=== PATIENT | male | born 1960 | race Caucasian/White ===

== ENCOUNTER 2016-09-22 03:35 | Emergency (ER) | payer OTHER ==
--- NOTE | 2016-09-22 03:45 | ED Physician Documentation ---
History of Present Illness - Stated complaint Stated Complaint: WEAKNESS - History obtained from History obtained from: Patient - History of Present Illness Timing: Enter time (23:30), Today Pain level now: 3 Radiates to: no radiation Improved by: no ameliorating factors Worsened by: no exacerbating factors - Additonal information Additional information: patient says he was in bed trying to go to sleep at approximately 11:30 PM tonight when he felt a vague discomfort in his upper abdomen. He says it was not pain, just "uncomfortable". Mild nausea, denies dyspnea. He felt he had to have BM and thus went to the bathroom, says he "became worse" and thus lied down on the floor. I asked what became worse, he says the "uncomfortable" sensation. Denies lightheadedness. Patient is visiting from [place]. He stopped taking Plavix about a week ago, although he says his doctor told him he could stop this medication. H/O LA approximately 5 years ago with 2 stents to LAD. Review of Systems Constitutional: reports: Reviewed and negative Eyes: reports: Reviewed and negative Ears: reports: Reviewed and negative Nose: reports: Reviewed and negative Throat: reports: Reviewed and negative Cardiac: reports: Reviewed and negative GI: reports: Abdominal Pain, Nausea. denies: Vomiting : reports: Reviewed and negative Skin: reports: Reviewed and negative Musculoskeletal: reports: Reviewed and negative Neurologic: reports: Reviewed and negative PD PAST MEDICAL HISTORY - Past Medical History Past Medical History: Yes Cardiovascular: Hypertension, High cholesterol, LA Psych: ADD/ADHD - Past Surgical History Past Surgical History: Yes Cardiovascular: Coronary stent - Present Medications Home Medications: Ambulatory Orders Medication Instructions Recorded Confirmed Amphetamine Sulfate [Evekeo] 20 mg PO BID 09/22/16 09/22/16 Aspirin 325 mg PO DAILY 09/22/16 09/22/16 Atorvastatin Calcium 80 mg PO DAILY PM 09/22/16 09/22/16 Diclofenac Sodium [Voltaren] 1 TOP Q6HR 09/22/16 Fenofibrate Nanocrystallized 145 mg PO DAILY 09/22/16 09/22/16 [Fenofibrate] Lisinopril 5 mg PO DAILY 09/22/16 09/22/16 Metoprolol Succinate 25 mg PO DAILY 09/22/16 09/22/16 - Allergies Allergies/Adverse Reactions: Allergies Allergy/AdvReac Type Severity Reaction Status Date / Time No Known Drug Allergies Allergy Verified 09/22/16 03:47 - Living Situation Living Arrangement: reports: At home - Social History Does the pt have substance abuse?: No PD ED PE NORMAL - Vitals Vital signs reviewed: Yes - General General: Alert and oriented X 3, No acute distress, Well developed/nourished - HEENT HEENT: Moist mucous membranes - Neck Neck: Supple, no meningeal sign - Cardiac Cardiac: RRR, No murmur, No gallop, No rub - Respiratory Respiratory: No respiratory distress, Clear bilaterally - Abdomen Abdomen: Soft, Non tender, Non distended - Derm Derm: Normal color, Warm and dry - Extremities Extremities: No edema - Neuro Neuro: Alert and oriented X 3, fur examiner 2-12 intact, No motor deficit, No sensory deficit Results - Vitals Vitals: Vital Signs - 24 hr 09/22/16 09/22/16 08:17 10:00 Temperature 36.3 C L Heart Rate 50 L 62 Respiratory 16 16 Rate Blood Pressure 126/82 H 118/81 H O2 Saturation 99 95 Oxygen O2 Source Room air - EKG (time done) No standard instances Rate: Rate (enter#) (58) Rhythm: NSR [place]: Normal Intervals: Normal NM, RBBB QRS: Normal Ischemia: Normal ST segments, Q waves (V1, V2) - Labs Labs: Laboratory Tests 09/22/16 09/22/16 09/22/16 03:50 03:50 03:50 WBC 15.4 H RBC 5.33 Hgb 15.5 Hct 44.5 MCV 83.5 MCH 29.1 MCHC 34.9 RDW 12.9 Plt Count 249 MPV 7.8 Neut # 12.8 H Lymph # 1.6 [place] # 0.8 Eos # 0.2 Baso # 0.0 Absolute Nucleated RBC 0.01 Nucleated RBCs 0.0 Sodium 137 Potassium 4.3 Chloride 101 Carbon Dioxide 26 Anion Gap 10.0 BUN 22 H Creatinine 1.3 H Estimated GFR (MDRD) 57 L Glucose 181 H Calcium 9.3 Total Bilirubin 0.5 AST 28 ALT 26 Alkaline Phosphatase 55 Troponin I < 0.04 Total Protein 7.0 Albumin 4.6 Globulin 2.4 Albumin/Globulin Ratio 1.9 Lipase 31 Urine Color Urine Clarity Urine pH Ur Specific [place] Urine Protein Urine Glucose (UA) Urine Ketones Urine Occult Blood Urine Nitrite Urine Bilirubin Urine Urobilinogen Ur Leukocyte Esterase Ur Microscopic Review Urine Culture Comments 09/22/16 06:54 WBC RBC Hgb Hct MCV MCH MCHC RDW Plt Count MPV Neut # Lymph # [place] # Eos # Baso # Absolute Nucleated RBC Nucleated RBCs Sodium Potassium Chloride Carbon Dioxide Anion Gap BUN Creatinine Estimated GFR (MDRD) Glucose Calcium Total Bilirubin AST ALT Alkaline Phosphatase Troponin I Total Protein Albumin Globulin Albumin/Globulin Ratio Lipase Urine Color YELLOW Urine Clarity CLEAR Urine pH 8.0 H Ur Specific [place] 1.010 Urine Protein NEGATIVE Urine Glucose (UA) NEGATIVE Urine Ketones NEGATIVE Urine Occult Blood NEGATIVE Urine Nitrite NEGATIVE Urine Bilirubin NEGATIVE Urine Urobilinogen 0.2 (NORMAL) Ur Leukocyte Esterase NEGATIVE Ur Microscopic Review NOT INDICATED Urine Culture Comments NOT INDICATED - Rads (name of study) chest xray Radiology: Prelim report reviewed, See rad report CT abd/pelvis angio Radiology: Prelim report reviewed, See rad report PD MEDICAL DECISION MAKING - ED course Complexity details: reviewed results, re-evaluated patient, considered differential, d/w patient, d/w family ED course: Patient's initial exam was unremarkable and he was in NAD. On reevaluation, he appeared to be in obvious painful distress, although he says he is merely "uncomfortable". He agreed with zofran and morphine, which he says helped significantly (although he continued to appear uncomfortable). CT A/P performed to r/o AAA. This revealed splenic infarct and thrombus, possible embolus, of the splenic artery. Case d/w vascular surgeon at [facility]; he says patient would not need nor benefit from vascular surgical service. I then d/w Dr. Leyva ([facility] hospitalist), who recommends transfer to higher level of care. I then d/w hospitalist at [facility]; she opines that patient does not need, nor would benefit from, transfer to higher level of care. I again d/w Dr. Leyva, who came to ED to evaluated patient. He then arranged for transfer to [facility]. Departure - Departure Disposition: 02 Transfer Acute Care Hosp Clinical Impression: Splenic infarction Condition: Stable Discharge Date/Time: 09/22/16 11:39
[2016-09-22 04:15] LABS: BASOPHILS % (AUTO) 0.3 %; EOSINOPHILS # (AUTO) 0.2 10^3/uL (0.0-0.7); HCT - HEMATOCRIT 44.5 % (42.0-52.0); HGB - HEMOGLOBIN 15.5 g/dL (14.0-18.0); LYMPHOCYTES # (AUTO) 1.6 10^3/uL (1.5-3.5); LYMPHOCYTES % (AUTO) 10.4 %; MEAN CORPUSCULAR HEMOGLOBIN 29.1 pg (27.0-31.0); MEAN CORPUSCULAR HGB CONC 34.9 g/dL (32.0-36.0); MEAN CORPUSCULAR VOLUME 83.5 fL (80.0-94.0); MEAN PLATELET VOLUME 7.8 fL (7.4-11.4); MONOCYTES # (AUTO) 0.8 10^3/uL (0.0-1.0); MONOCYTES % (AUTO) 5.3 %; NEUTROPHILS # (AUTO) 12.8 10^3/uL (1.5-6.6); RED BLOOD COUNT 5.33 10^6/uL (4.70-6.10); RED CELL DISTRIBUTION WIDTH 12.9 % (12.0-15.0); UNCORRECTED WHITE BLOOD COUNT 15.4 x10^3/uL; WHITE BLOOD COUNT 15.4 x10^3/uL (4.8-10.8)
[2016-09-22 04:25] LABS: ALBUMIN/GLOBULIN RATIO 1.9 (1.0-2.2); BILIRUBIN,TOTAL 0.5 mg/dL (0.2-1.0); CALCIUM 9.3 mg/dL (8.5-10.3); CREATININE 1.3 mg/dL (0.6-1.2); POTASSIUM 4.3 mmol/L (3.5-5.0)
[2016-09-22] MEDS ORDERED: ONDANSETRON 4 MG/2 ML VIAL ONE (04:29)
[2016-09-22] MEDS ORDERED: ONDANSETRON 4 MG/2 ML VIAL IVP STA ×2 (04:35→06:42)
--- NOTE | 2016-09-22 05:15 | XRAY Preliminary Report ---
Exam: XR Chest 2 View PA/LAT IMPRESSION: 1. No acute abnormality seen in the chest. [facility] SITE ID: [id number]
--- NOTE | 2016-09-22 05:18 | XRAY Report ---
EXAM: CHEST RADIOGRAPHY EXAM DATE: 09/22/2016 04:50 AM. CLINICAL HISTORY: Chest pain. COMPARISON: None. TECHNIQUE: 2 views. FINDINGS: Lungs/Pleura: No alveolar consolidation or pleural effusion. No pneumothorax. Mediastinum: Heart and mediastinal contours are unremarkable. Other: None. IMPRESSION: 1. No acute abnormality seen in the chest. [facility] Referring Provider Line: [phone] SITE ID: [id number]
[2016-09-22] MEDS ORDERED: MORPHINE 2 MG/ML SYRINGE IVP STA ×3 (05:25→08:49)
[2016-09-22] MEDS ORDERED: MORPHINE 2 MG/ML SYRINGE ONE ×3 (05:26→08:54)
[2016-09-22] MEDS ORDERED: IOPAMIDOL-300 100 ML VIAL IVP ONE (06:06)
--- NOTE | 2016-09-22 06:30 | CT Report ---
EXAM: CT ANGIOGRAM ABDOMEN AND PELVIS WITH CONTRAST EXAM DATE: 09/22/2016 06:11 AM. CLINICAL HISTORY: Left upper quadrant abdominal pain. Tightness in the chest. COMPARISONS: None. TECHNIQUE: Routine helical CT angiogram imaging was performed through the abdomen and pelvis in the a rterial phase. IV contrast: Nonionic. Enteric contrast: No. Reconstructions: Coronal, sagittal, and 3 D MIP reconstructions. In accordance with CT protocol optimization, one or more of the following dose reduction techniques w ere utilized for this exam: automated exposure control, adjustment of mA and/or KV based on patient s ize, or use of iterative reconstructive technique. FINDINGS: Vasculature: No aortic aneurysm or dissection is seen. No significant stenosis is seen in the celiac axis, superior mesenteric artery, bilateral renal arteries, inferior mesenteric artery, or bilateral iliac arteries. Filling defect consistent with thrombus is seen in the distal splenic artery. This is likely embolic. Lung Bases: No alveolar consolidation seen. Some questionable strandy filling defects are seen in the left ventricle which could be clot. This would be a potential source of splenic artery embolus. Cons ider echocardiogram for further evaluation. Abdominal Solid Organs: No focal lesion identified in the liver on this arterial phase examination. G allbladder is unremarkable. Much of the spleen appears to be nonenhancing. This can be seen with charly y phase contrast enhancement but in this case, there likely is a large amount of splenic infarct. Toro creas and adrenals show no focal abnormalities. At least one nonobstructing stone is seen in the left kidney and at least 2 in the right kidney. No obstructive uropathy is seen. Peritoneal Cavity: Umbilical hernia containing fat. No diverticulitis is seen. No small bowel obstruc tion. No free air or free fluid is identified. No lymphadenopathy is seen. Appendix appears normal. Pelvic Organs: Normal. The bladder and visualized pelvic organs are within normal limits. Bones: No significant abnormality. Other: There is a 6 x 5 mm calcification in the left hemipelvis at the level of the sciatic notch, se anu 3 image 184. This is within or immediately adjacent to the distal left ureter. This could be a p hlebolith or a nonobstructing ureteral stone. IMPRESSION: 1. Filling defect in the distal splenic artery, likely embolic. Suspect acute infarction of a large p ortion of the spleen. 2. Some questionable strandy filling defects are seen in the left ventricle. Recommend echocardiogram to evaluate for possible thrombus. 3. Nonobstructing renal stones bilaterally. No obstructive uropathy is seen. Phlebolith versus nonobs tructing distal left ureteral stone at the level of the sciatic notch measuring 6 x 5 mm. [facility] The above critical findings were discussed with Dr. Sanford by Dr. Ricardo Ashraf at 06:21 hrs on 09/07 09/23. Referring Provider Line: [phone] SITE ID: [id number]
[2016-09-22] MEDS ORDERED: SODIUM CHLORIDE 0.9% 1,000 ML IV STA (06:48)
[2016-09-22 07:01] LABS: BILIRUBIN,URINE NEGATIVE (NEGATIVE)
[2016-09-22 07:14] LABS: UA CHARGE (STRIP ONLY) YES; UR CULTURE IF IND NOT INDICATED
[2016-09-22] MEDS ORDERED: HEPARIN 25,000 UNITS/500 ML 500 ML IV STA (09:08)
[2016-09-22] MEDS ORDERED: HEPARIN 25,000 UNITS/500 ML 500 ML IV ONE (09:13)
[2016-09-22 10:03] VITALS: BP 118/81
== END 2016-09-22 11:39 | disposition short-term general hospital (02) ==
LOC: ED 03:35
DX: I74.8 Embolism and thrombosis of other arteries (principal); I45.10 Unspecified right bundle-branch block; R94.31 Abnormal electrocardiogram [ECG] [EKG]; I10 Essential (primary) hypertension; E78.00 Pure hypercholesterolemia, unspecified; I25.2 Old myocardial infarction; Z79.82 Long term (current) use of aspirin
CPT/HCPCS: 36415; 71020; 74174; 80053; 81003; 83690; 84484; 85025; 87040; 93005; 93010; 96374; 96375; 96376; 99284; 99285; Q9967; 81001; 87086